=== PATIENT | male | born 1945 | race Caucasian/White ===

== ENCOUNTER 2018-05-20 17:35 | Emergency (ER) | payer MEDICARE, BC ==
--- NOTE | 2018-05-20 17:46 | UC ---
Head Injury HPI - HPI Summary HPI Summary: 73 yo male presents with head injury. He tells me that last night he was at a friend's house and they have low ceilings with beams. He was walking up a flight of stairs and hit the front of his head on one of the beams. No LOC. Continued with his evening and drove home later. Had a mild headache. Today noticed the headache was a little worse, but improved with ibuprofen. Also mentions that his headache worsened when reading or using his ipad or when trying to concentrate. He does not take any blood thinners. Denies fever, chills , dizziness, vision changes, n/v, numbness, or weakness. - History Of Current Complaint Stated Complaint: HEAD INJURY Time Seen by Provider: 05/20/18 17:45 Hx Obtained From: Patient Onset/Duration: Sudden Onset Severity Currently: Mild Severity Initially: Mild Pain Intensity: 3 Pain Scale Used: 0-10 Numeric - Allergies/Home Medications Allergies/Adverse Reactions: Allergies Allergy/AdvReac Type Severity Reaction Status Date / Time amoxicillin Allergy Unknown Verified 05/20/18 17:54 Reaction Details Home Medications: Home Medications Ibuprofen 600 mg 05/20/18 [History] Tamsulosin CAP* [Flomax CAP*] 05/20/18 [History] diazePAM [Valium] 05/20/18 [History] PMH/Surg Hx/FS Hx/Imm Hx - Additional Past Medical History Additional PMH: BPH - Family History Known Family History: Positive: None - Social History Occupation: Retired Lives: With Family Alcohol Use: Rare Substance Use Type: None Smoking Status (MU): Never Smoked Tobacco Review of Systems Constitutional: Negative Skin: Negative Eyes: Negative ENT: Negative Respiratory: Negative Cardiovascular: Negative Gastrointestinal: Negative Motor: Negative Neurovascular: Negative Musculoskeletal: Negative Neurological: Headache Psychological: Negative All Other Systems Reviewed And Are Negative: Yes Physical Exam - Summary Physical Exam Summary: GENERAL: NAD. WDWN. No pain distress. SKIN: No open wounds, hematoma, or ecchymosis. HEENT: Head: AT/NC. No raccoon eyes or carlson's sign. Eyes: PERRLA. EOM intact. Conjunctiva clear without inflammation or discharge. Ears: Hearing grossly normal. TMs intact, no bulging, erythema, or edema. Nose: Nasal mucosa pink and moist. NTTP maxillary and frontal sinus. Throat: Posterior oropharynx without exudates, erythema, or tonsillar enlargement. Uvula midline. NECK: Supple. NTTP. FROM. CHEST: CTAB. No r/r/w. No accessory muscle use. Breathing comfortably and in no distress. CV: RRR. Without m/r/g. Pulses intact. Brisk cap refill. MSK: FROM and symmetric 5/5 strength b/l UEs and LEs. NEURO: A&Ox3. 3 word recall, remote, recent memory, ability to follow 2-step directions, and attention intact. CN II-XII grossly intact. Zrzqyr-ni-zjtn are intact, but less consistent on the right side. Gait with normal base. Romberg: maintains balance, no pronator drift. Normal speech. No facial drooping. PSYCH: Age appropriate behavior. Triage Information Reviewed: Yes Vital Signs: Vital Signs: Temp Pulse Resp BP Pulse Ox 98.4 F 58 14 149/77 98 05/20/18 17:51 05/20/18 17:51 05/20/18 17:51 05/20/18 17:51 05/20/18 17:51 Head Injury Course/Dx - Course Course Of Treatment: head CT: IMPRESSION: No CT evidence of acute intracranial injury. Suspect mild concussion based on symptoms. Recommended brain rest and f /u with PCP - Differential Dx/Diagnosis Provider Diagnoses: Head injury Discharge - Sign-Out/Discharge Documenting (check all that apply): Discharge/Admit/Transfer - Discharge Plan Condition: Stable Disposition: HOME Patient Education Materials: Concussion (ED), Head Injury (ED) Referrals: Hoang Myers MD [Primary Care Provider] - Additional Instructions: If you develop a fever, shortness of breath, chest pain, vomiting, vision changes, new or worsening symptoms - please call your PCP or go to the ED. Your blood pressure was mildly at todays visit. Please see your primary provider within 4 weeks for recheck and re-evaluation. - Billing Disposition and Condition Condition: STABLE Disposition: Home
[2018-05-20 17:54] VITALS: BP 149/77
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
== END 2018-05-20 19:10 | disposition home or self-care (01) ==
LOC: UCEAST 17:35
DX: S09.90XA Unspecified injury of head, initial encounter (principal); W22.09XA Striking against other stationary object, initial encounter; Y93.89 Activity, other specified; Y92.008 Other place in unspecified non-institutional (private) residence as the place of occurrence of the external cause; N40.0 Benign prostatic hyperplasia without lower urinary tract symptoms; Z88.0 Allergy status to penicillin
CPT/HCPCS: 70450; 99201; G0463

== ENCOUNTER 2018-08-02 16:53 | Emergency (ER) | payer MEDICARE, BC ==
[2018-08-02 17:07] VITALS: BP 135/87
--- NOTE | 2018-08-02 19:03 | UC ---
Complaint Male HPI - HPI Summary HPI Summary: 73 male presents to the urgent care c/o c/o frequent urination for a year, worse for the last 2 days. Went 32 times yesterday and 22 times today. - History of Current Complaint Chief Complaint: UCGU Stated Complaint: FREQ URINATION Time Seen by Provider: 08/02/18 18:40 Hx Obtained From: Patient Pain Intensity: 0 - Allergies/Home Medications Allergies/Adverse Reactions: Allergies Allergy/AdvReac Type Severity Reaction Status Date / Time amoxicillin Allergy Unknown Verified 08/02/18 17:07 Reaction Details PMH/Surg Hx/FS Hx/Imm Hx - Surgical History Surgical History: None - Family History Known Family History: Positive: None - Social History Alcohol Use: Rare Substance Use Type: Prescribed Smoking Status (MU): Never Smoked Tobacco Physical Exam - Summary Physical Exam Summary: VITAL SIGNS: Reviewed. GENERAL: Patient is a well developed and nourished male who is sitting comfortable in the examining table. Patient is not in any acute respiratory distress. HEAD AND FACE: No signs of trauma. No ecchymosis, hematomas or skull depressions. No sinus tenderness. EYES: PERRLA, EOMI x 2, No injected conjunctiva, clear watery eyes, no nystagmus. No photophobia. EARS: Hearing grossly intact. Ear canals and tympanic membranes are within normal limits. MOUTH: pharynx with no erythema, no exudates,no palatal petechiae. no B/L tonsillar enlargement Uvula in midline. NECK: Supple, trachea is midline, no lymphadenopathy, no JVD, no carotid bruit, no c-spine tenderness, neck with full ROM. CHEST: Symmetric, no tenderness at palpation LUNGS: Clear to auscultation bilaterally. No wheezing or crackles. CVS: Regular rate and rhythm, S1 and S2 present, no murmurs or gallops appreciated. ABDOMEN: Soft, non-tender. No signs of distention. No rebound no guarding, and no masses palpated. Bowel sounds are normal. BACK:no scoliosis or lesions, non tender to palpation, No B/L CVA tenderness EXTREMITIES: FROM in all major joints, no edema, no cyanosis or clubbing. NEURO: Alert and oriented x 3. No acute neurological deficits. Speech is normal and follows commands. SKIN: Dry and warm Triage Information Reviewed: Yes Vital Signs: Initial Vital Signs Temp 97.5 F 08/02/18 17:04 Pulse 72 08/02/18 17:04 Resp 18 08/02/18 17:04 BP 135/87 08/02/18 17:04 Pulse Ox 97 08/02/18 17:04 Complaint Male Course/Dx - Differential Dx/Diagnosis Differential Diagnosis/HQI/PQRI: Epididymitis, Prostatitis, Ureteral Calculi, Urinary Tract Infection Provider Diagnoses: 1-Dysuria. 2- BPH Discharge - Sign-Out/Discharge Documenting (check all that apply): Patient Departure - D/C home All imaging exams completed and their final reports reviewed: No Studies - Discharge Plan Condition: Stable Disposition: HOME Prescriptions: Phenazopyridine 200 mg (NF) [Pyridium 200 MG tab *] 200 mg PO TID #4 tab Patient Education Materials: Dysuria (ED) Referrals: Hoang Myers MD [Primary Care Provider] - 3 Days Enio Bergeron MD [Medical Doctor] - 3 Days Additional Instructions: 1- Please take Pyridium 200 mg PO TID x 2 days to alleviate urinary symptoms. First 2 doses given at the clinic today. Increase increase fluid intake. drink cranberry juice. 2-Urine sent for culture if any abnormality, you will be notified for further treatment. 3-Please f/u w/ Urologist Dr Webster in 2-3 days for further management on your BPH and symptoms. - Billing Disposition and Condition Condition: STABLE Disposition: Home
[2018-08-02] MEDS ORDERED: Phenazopyridine TAB* 100 MG PO ONE ×3 (19:21→19:28)
--- NOTE | 2018-08-04 17:46 | UC ---
- Progress Note Progress Note: Urine culture came back negative. No growth. Discharge - Sign-Out/Discharge Documenting (check all that apply): Patient Departure All imaging exams completed and their final reports reviewed: No Studies - Discharge Plan Condition: Stable Disposition: HOME Prescriptions: Phenazopyridine 200 mg (NF) [Pyridium 200 MG tab *] 200 mg PO TID #4 tab Patient Education Materials: Dysuria (ED) Referrals: Hoang Myers MD [Primary Care Provider] - 3 Days Enio Bergeron MD [Medical Doctor] - 3 Days Additional Instructions: 1- Please take Pyridium 200 mg PO TID x 2 days to alleviate urinary symptoms. First 2 doses given at the clinic today. Increase increase fluid intake. drink cranberry juice. 2-Urine sent for culture if any abnormality, you will be notified for further treatment. 3-Please f/u w/ Urologist Dr Webster in 2-3 days for further management on your BPH and symptoms. - Billing Disposition and Condition Condition: STABLE Disposition: Home
== END 2018-08-02 19:35 | disposition home or self-care (01) ==
LOC: UCEAST 16:53
DX: N40.0 Benign prostatic hyperplasia without lower urinary tract symptoms (principal); R30.0 Dysuria; Z88.0 Allergy status to penicillin
CPT/HCPCS: 81003; 87086; 99212; A9270-GY; G0463

== ENCOUNTER 2019-05-06 11:07 | Day surgery (SDC) | payer MEDICARE, BC ==
[~2019-05-06 11:07] MED LIST: Acetaminophen TAB* 325 MG PO PRN; Buffered Lidocaine 1% SYRIN* 1 ML/SYRINGE INTRADERM ONE
[2019-05-06] MEDS ORDERED: Povidone Iodine 5% OPTH* 30 ML BTL ONE (12:17)
[2019-05-06] MEDS ORDERED: Lidocaine 1%* 5 ML VIAL ONE (12:17)
[2019-05-06] MEDS ORDERED: Lidocaine 2% EPI 1:200000 MPF*10-20 ML VIAL ONE (12:17)
[2019-05-06] MEDS ORDERED: Cyclopentolate 1% OPTH.SOL* 2 ML BTL ONE (12:17)
[2019-05-06] MEDS ORDERED: acetaZOLAMIDE TAB* 250 MG ONE (12:17)
[2019-05-06] MEDS ORDERED: Phenylephrine OPHTH SOL 2.5%* 2 ML ONE (12:17)
[2019-05-06] MEDS ORDERED: Ketorolac 0.5% OPHTH (NF) 0.5 % 5 ML BTL ONE (12:17)
[2019-05-06] MEDS ORDERED: Neomycin/Polymy/Dex OPTH.SUSP* MAXITROL 0.1% 5 ML ONE (12:17)
[2019-05-06] MEDS ORDERED: Proparacaine 0.5% OPHTH.SOL* 15 ML BTL ONE (12:18)
[2019-05-06] MEDS ORDERED: Lidocaine 2% PF * 5 ML VIAL ONE (13:35)
[2019-05-06] MEDS ORDERED: Propofol* 10 MG/ML 20 ML BTL ONE (13:35)
[2019-05-06 14:31] VITALS: BP 125/67
--- NOTE | 2019-05-06 20:44 | OP ---
DATE OF OPERATION: 05/06/19 - [facility] DATE OF : 49 SURGEON: Calvin Couch M.D. PREOPERATIVE DIAGNOSIS: Cataract, right eye. POSTOPERATIVE DIAGNOSIS: Cataract, right eye. OPERATIVE PROCEDURE: Extracapsular cataract extraction with intraocular lens implant, right eye. DESCRIPTION OF PROCEDURE: The patient was brought to the operating room after being given 1/2% Alcaine with epinephrine drops in the preoperative area. The eye was prepped and draped in the usual sterile fashion. Sterile drape and eyelid speculum were placed. Again, topical 1/2% Alcaine with epinephrine was given. A paracentesis incision was made at the 9 o'clock position with the No.75 blade. Clear cornea incision 2.2 x 2.2-mm was created at the 12 o'clock position starting at the anterior limbus using the 2.2-mm keratome. The anterior chamber was irrigated with 0.4 mL of 1% non-preservative intracameral lidocaine and filled with DisCoVisc. A capsulorrhexis was completed using the cystotome and the Utrata forceps. Hydrodissection was performed with balanced salt solution. The lens nucleus was removed with the Phacoemulsification handpiece without incident. Cortex was removed with the irrigation-aspiration handpiece. The capsular bag was re-inflated using DisCoVisc and an [id number] implant was inserted with the shooter. The irrigation-aspiration handpiece was used to remove all residual DisCoVisc. The eye was refilled with balanced salt solution and the wound checked and found to be watertight. Topical Maxitrol drops were given. [id number]/[facility] #: [id number] [facility]
== END 2019-05-06 14:15 | disposition home or self-care (01) ==
LOC: OREAST 11:07
PROVIDERS: ATTEND Specialist
DX: H25.811 Combined forms of age-related cataract, right eye (principal); H35.373 Puckering of macula, bilateral; J45.909 Unspecified asthma, uncomplicated; K58.9 Irritable bowel syndrome, unspecified; G47.00 Insomnia, unspecified
CPT/HCPCS: A9270-GY; J2704; V2632

== ENCOUNTER 2019-05-13 11:33 | Day surgery (SDC) | payer MEDICARE, BC ==
[~2019-05-13 11:33] MED LIST changes: -Acetaminophen TAB* 325 MG PO PRN; -Buffered Lidocaine 1% SYRIN* 1 ML/SYRINGE INTRADERM ONE; +Cyclopentolate 1% OPTH.SOL* 2 ML BTL ONE; +Ketorolac 0.5% OPHTH (NF) 0.5 % 5 ML BTL ONE; +Lidocaine 1%* 5 ML VIAL ONE; +Lidocaine 2% EPI 1:200000 MPF*10-20 ML VIAL ONE; +Neomycin/Polymy/Dex OPTH.SUSP* MAXITROL 0.1% 5 ML ONE; +Phenylephrine OPHTH SOL 2.5%* 2 ML ONE; +Povidone Iodine 5% OPTH* 30 ML BTL ONE; +Proparacaine 0.5% OPHTH.SOL* 15 ML BTL ONE; +acetaZOLAMIDE TAB* 250 MG ONE
[2019-05-13] MEDS ORDERED: Midazolam* 1 MG/ML 2 ML VIAL (2 MG) ONE (13:12)
[2019-05-13 14:35] VITALS: BP 123/85
--- NOTE | 2019-05-13 14:41 | OP ---
OPERATIVE NOTE: DATE OF OPERATION: 05/13/19 DATE OF : 49 SURGEON: Calvin Couch M.D. PREOPERATIVE DIAGNOSIS: Cataract, left eye. POSTOPERATIVE DIAGNOSIS: Cataract, left eye. OPERATIVE PROCEDURE: Extracapsular cataract extraction with intraocular lens implant left eye. PROCEDURE: The patient was brought to the operating room after being given 1/2% Alcaine with epineph rine drops in the preoperative area. The eye was prepped and draped in the usual sterile fashion. S terile drape and eyelid speculum were placed. Again, topical 1/2% Alcaine with epinephrine was given . A paracentesis incision was made at the 3 o'clock position with the No.75 blade. Clear cornea inc ision 2.2 x 2.2-mm was created at the 6 o'clock position starting at the anterior limbus using the 2. 2-mm keratome. The anterior chamber was irrigated with 0.4 mL of 1% non-preservative intracameral li docaine and filled with DisCoVisc. A capsulorrhexis was completed using the cystotome and the Utrata forceps. Hydrodissection was performed with balanced salt solution. The lens nucleus was removed wi th the Phacoemulsification handpiece without incident. Cortex was removed with the irrigation-aspira tion handpiece. The capsular bag was re-inflated using DisCoVisc and an SN60WF 14.5 implant was inse rted with the shooter. The irrigation-aspiration handpiece was used to remove all residual DisCoVisc . The eye was refilled with balanced salt solution and the wound checked and found to be watertight. Topical Maxitrol drops were given. [id number]/[facility] #: [id number]
== END 2019-05-13 14:26 | disposition home or self-care (01) ==
LOC: OREAST 11:33
PROVIDERS: ATTEND Specialist
DX: H25.812 Combined forms of age-related cataract, left eye (principal); H35.373 Puckering of macula, bilateral; J45.909 Unspecified asthma, uncomplicated; F41.9 Anxiety disorder, unspecified
CPT/HCPCS: A9270-GY; J2250; V2632